=== PATIENT | female | born 1985 | race Caucasian/White ===

== ENCOUNTER 2023-07-21 04:44 | Emergency (ER) | payer MEDICAID ==
[~2023-07-21] VITALS: Ht 170.2 cm; Wt 91.9 kg
[2023-07-21 04:51] VITALS: BP 139/81; PULSE 82; RESP 16; TEMP 98.1; O2SAT 98
[2023-07-21] MEDS ORDERED: IBUP1TAB5 PO (05:21)
[2023-07-21] MEDS ORDERED: AUG875T PO (05:21)
[2023-07-21] MEDS ORDERED: OFL50TS OT (05:21)
[2023-07-21] MEDS ORDERED: LIDO2SOL18 MT (05:21)
[2023-07-21] MEDS ORDERED: HYDROcodone-ACET 5/325MG TAB PO ONE (05:30)
== END 2023-07-21 06:30 | disposition home or self-care (01) ==
LOC: ER 04:44
DX: H66.93 Otitis media, unspecified, bilateral (principal); J02.9 Acute pharyngitis, unspecified

== ENCOUNTER 2024-10-12 14:31 | Emergency (ER) | payer MEDICAID ==
[~2024-10-12] VITALS: Ht 170.2 cm; Wt 88.5 kg
[~2024-10-12 14:31] MED LIST: AUG875T PO; IBUP1TAB5 PO; LIDO2SOL18 MT; OFL50TS OT
[2024-10-12 15:59] VITALS: BP 146/92; PULSE 77; RESP 18; O2SAT 98
== END 2024-10-12 18:06 | disposition left against medical advice (07) ==
LOC: ER 14:31
DX: H92.01 Otalgia, right ear (principal); R05.9 Cough, unspecified; Z53.21 Procedure and treatment not carried out due to patient leaving prior to being seen by health care provider